=== PATIENT | male | born 1990 | race Caucasian/White ===

== ENCOUNTER → 2017-03-26 | Outpatient (REF) | payer OTHER ==
[2017-03-26 10:31] LABS: #IMMOTILE SPERM COUNTED 14; #MOTILE SPERM COUNTED 10; % MOTILITY 42 (> 40%); SEMEN APPEARANCE OPAQUE (OPAQUE); SEMEN VISCOSITY LIQUID (LIQUID); SEMEN WBC >1 M/ml (<=1 M/ml); SPERM CONCENTRATION 12 M/ml (> 15 M/ml); TOTAL # SPERM COUNTED 24 M/ml
== END ==
LOC: M LAB REF 10:09
DX: N46.9 Male infertility, unspecified (principal)
CPT/HCPCS: 89320

== ENCOUNTER → 2017-04-06 | Outpatient (REF) | payer OTHER ==
[2017-04-06 11:36] LABS: SEMEN APPEARANCE OPAQUE (OPAQUE)
[2017-04-06 11:37] LABS: % NORMAL FORMS 11 % (>=4); IMMOTILITY 37 %; NON PROGRESSIVE MOTILITY (c) 19 %; PROGRESSIVE MOTILITY (a) 44 % (>=32); SEMEN VISCOSITY LIQUID (LIQUID); SEMEN VOLUME 4.2 ml (4.0-5.0); SEMEN pH 8.5 (7.0-8.0); SPERM CONCENTRATION 17.7 M/ml (>=15.0); SPERM# 74.2 M/Ejac (>=39); TOTAL FUNCTIONAL 8.1 M/Ejac.; TOTAL MOTILITY 63 % (>=40); TOTAL PROGRESSIVE SPERM 32.7 M/Ejac.; WBC CONCENTRATION <=1 M/ml (<=1 M/ml)
== END ==
LOC: M LAB REF 11:19
DX: Z31.41 Encounter for fertility testing (principal)